=== PATIENT | female | born 1960 | race Native Hawaiian/Other Pacific Islander ===

== ENCOUNTER → 2018-08-04 | Outpatient (CLI) | payer OTHER ==
[2018-08-04 11:47] LABS: CALCIUM 10.2 mg/dL (8.5-10.1); CARBON DIOXIDE 34.7 mmol/L (21-32); CREATININE SERUM 1.3 mg/dL (0.6-1.0)
== END | disposition home or self-care (01) ==
LOC: LB 10:37
DX: N28.89 Other specified disorders of kidney and ureter (principal)

== ENCOUNTER → 2018-08-06 | Outpatient (CLI) | payer OTHER | END | disposition home or self-care (01) | LOC: MI 08:21 | PROC: BW30YZZ Magnetic Resonance Imaging (MRI) of Abdomen using Other Contrast (ICD-10-PCS; principal; 2018-08-06) | DX: N28.9 Disorder of kidney and ureter, unspecified (principal) | CPT/HCPCS: A9577 ==

== ENCOUNTER → 2019-10-20 | Outpatient (CLI) | payer OTHER ==
--- NOTE | 2019-10-20 11:53 | NUR ---
STRESS ECHO DONE
== END | disposition home or self-care (01) ==
LOC: CA 09:29
PROVIDERS: ATTEND Internal Medicine Cardiovascular Disease
DX: R06.02 Shortness of breath (principal); R07.9 Chest pain, unspecified